=== PATIENT | male | born 1950 | race Caucasian/White ===

== ENCOUNTER 2022-09-22 05:33 | Day surgery (SDC) | payer MEDICARE, OTHER ==
[2022-09-20 13:37] LABS: COVID AG,FIA SOURCE NASAL SWAB
[~2022-09-22] VITALS: Ht 167.6 cm; Wt 77.2 kg
[~2022-09-22 05:33] MED LIST: CeFAZolin 2 GM/DEXTROSE 50 ML IV ONE; RINGERS SOLUTION,LACTATED 1,000 ML IV ONE
[2022-09-22] MEDS ORDERED: ROCURONIUM BROMIDE 10 MG/ML 5 ML VIAL IVP ONE (05:34)
[2022-09-22] MEDS ORDERED: LIDOCAINE/PF 2% 5 ML VIAL IM ONE (05:34)
[2022-09-22] MEDS ORDERED: ONDANSETRON HCL 4 MG/2 ML VIAL IVP ONE (05:34)
[2022-09-22] MEDS ORDERED: EPHEDrine SULFATE 50 MG/ML VIAL IM ONE (05:34)
[2022-09-22] MEDS ORDERED: PROPOFOL 1% 20 ML VIAL IVP ONE (05:34)
[2022-09-22] MEDS ORDERED: KETOROLAC TROMETHAMINE 60 MG/2 ML VIAL IM ONE (05:34)
[2022-09-22] MEDS ORDERED: FentaNYL CITRATE PF 100 MCG/2 ML VIAL IVP ONE (05:34)
[2022-09-22] MEDS ORDERED: 0.9% SODIUM CHLORIDE 10 ML VIAL IVP ONE (05:34)
[2022-09-22] MEDS ORDERED: MIDAZOLAM HCL 2 MG/2 ML VIAL IVP ONE (05:34)
[2022-09-22] MEDS ORDERED: METO-391 PO (06:04)
[2022-09-22] MEDS ORDERED: LOSA-382 PO (06:04)
[2022-09-22] MEDS ORDERED: AMLO5TAB66 PO (06:04)
[2022-09-22] MEDS ORDERED: LIDOCAINE 2%/EPI 1:200,000/PF 20 ML VIAL ONE ×2 (06:23)
[2022-09-22] MEDS ORDERED: BUPIVACAINE HCL/PF 0.5% 30 ML VIAL ONE (06:23)
[2022-09-22 06:27] LABS: BASOPHILS % (AUTO) 0.9 % (0.0-2.0); HEMATOCRIT 36.5 % (41-53); HEMOGLOBIN 11.4 g/dL (13.5-17.5); LYMPHOCYTES % (AUTO) 33.2 % (22.0-44.0); MEAN CORPUSCULAR HEMOGLOBIN 23.2 pg (26.0-34.0); MEAN CORPUSCULAR HGB CONC 31.3 G/dL (31.0-37.0); MEAN CORPUSCULAR VOLUME 74 fL (80-100); MONOCYTES # (AUTO) 0.6 K/uL (0.1-1.0); MONOCYTES % (AUTO) 10.5 % (2.0-9.0); NEUTROPHILS % (AUTO) 50.4 % (40.0-70.0); PLATELET COUNT (AUTO) 241 K/uL (150-450); RED BLOOD CELL COUNT(AUTO) 4.93 MIL/uL (4.50-5.90); RED CELL DISTRIBUTION WIDTH 17.5 % (11.5-14.5)
[2022-09-22 06:34] LABS: ANION GAP 5 mmol/L (8-16); CALCIUM, TOTAL 8.9 mg/dL (8.8-10.5); CARBON DIOXIDE 30 mmol/L (22-29); CHLORIDE 103 mmol/L (98-107); CREATININE 1.05 mg/dL (0.60-1.30); GLOMERULAR FILTR. RATE CALC > 60 mL/min (>60); GLUCOSE,RANDOM 123 mg/dL (70-110); POTASSIUM 4.7 mmol/L (3.5-5.1); SODIUM SERUM 138 mmol/L (136-145); UREA NITROGEN, BLOOD 21 mg/dL (7-18)
[2022-09-22] MEDS ORDERED: ETHYL ALCOHOL 62% ANTISEPTIC NASAL SANITIZER 0.6 ML AMPUL NASAL ONE (06:45)
[2022-09-22] MEDS ORDERED: CeFAZolin 2 GM/DEXTROSE 50 ML IV ONE (07:00)
[2022-09-22] MEDS ORDERED: SUGAMMADEX SODIUM 200 MG/2 ML VIAL IVP ONE (07:12)
[2022-09-22] MEDS ORDERED: RINGERS SOLUTION,LACTATED 1,000 ML IV ONE (08:17)
[2022-09-22] MEDS ORDERED: ACETAMINOPHEN 500 MG TABLET PO PRN (08:30)
[2022-09-22] MEDS ORDERED: IBUPROFEN 800 MG TABLET PO PRN (08:30)
[2022-09-22] MEDS ORDERED: ACET-66 PO (08:34)
[2022-09-22] MEDS ORDERED: IBUP100O27 PO (08:34)
[2022-09-22] MEDS ORDERED: FentaNYL CITRATE PF 100 MCG/2 ML VIAL IVP PRN (08:45)
[2022-09-22] MEDS ORDERED: HYDROmorphone HCL 2 MG/ML SYRINGE IVP PRN (08:45)
[2022-09-22] MEDS ORDERED: OXYGEN THERAPY IH SCH (20:00)
== END 2022-09-22 10:15 | disposition home or self-care (01) ==
LOC: SURGERY 05:33
PROVIDERS: ATTEND Surgery
DX: K40.90 Unilateral inguinal hernia, without obstruction or gangrene, not specified as recurrent (principal); I10 Essential (primary) hypertension; Z20.822 Contact with and (suspected) exposure to COVID-19; Z79.899 Other long term (current) drug therapy; Z86.11 Personal history of tuberculosis; Z98.890 Other specified postprocedural states
CPT/HCPCS: 87426; 49650; 80048; 85025; 36415; 88302; C9803; C1781; J3490 ×4; J2704; J3010; J1885; J2250; J2405; Q9967; J7120; J0690